=== PATIENT | male | born 1950 | race Hispanic/Latino ===

== ENCOUNTER 2018-11-23 14:04 | Observation (INO) | payer MEDICARE ==
[2018-11-21 14:30] LABS: BASOPHILS # (AUTO) 0.1 (0.0-0.1); BASOPHILS % 1.2 % (0.0-1.0); EOSINOPHILS # (AUTO) 0.4 (0.0-0.4); EOSINOPHILS % 4.2 % (0.0-6.0); HEMATOCRIT 43.8 % (38.2-49.6); HEMOGLOBIN 14.4 g/dL (14.0-18.0); LYMPHOCYTES # (AUTO) 2.9 (1.0-3.2); LYMPHOCYTES % 33.6 % (18.0-39.1); MEAN CORPUSCULAR HEMOGLOBIN 28.9 pg (28-32); MEAN CORPUSCULAR HGB CONC 32.9 g/dL (31-35); MEAN CORPUSCULAR VOLUME 87.8 fL (81-99); MONOCYTES # (AUTO) 0.7 (0.2-0.8); MONOCYTES % 8.6 % (4.4-11.3); NEUTROPHILS # (AUTO) 4.4 (2.1-6.9); NEUTROPHILS % 51.5 % (38.7-80.0); PLATELET COUNT 171 x10e3/uL (140-360); RED BLOOD COUNT 4.99 x10e6/uL (4.3-5.7); RED CELL DISTRIBUTION WIDTH 15.5 % (11.7-14.4)
[2018-11-21 14:46] LABS: ALANINE AMINOTRANSFERASE 28 IU/L (0-55); ALBUMIN 3.8 g/dL (3.5-5.0); ALBUMIN/GLOBULIN RATIO 1.1 (0.8-2.0); ALKALINE PHOSPHATASE 98 IU/L (40-150); ANION GAP 15.3 mmol/L (8-16); BLOOD UREA NITROGEN 14 mg/dL (7-26); BUN/CREATININE RATIO 13 (6-25); CALCIUM 9.7 mg/dL (8.4-10.2); CARBON DIOXIDE 25 mmol/L (22-29); CHLORIDE 98 mmol/L (98-107); CREATININE, SERUM 1.06 mg/dL (0.72-1.25); EST GLOMERULAR FILTRATION RATE > 60 ML/MIN (60-); GLUCOSE 232 mg/dL (74-118); POTASSIUM 4.3 mmol/L (3.5-5.1); SODIUM 134 mmol/L (136-145)
[2018-11-23] VITALS (15 sets, daily range): BP systolic 103–195; BP diastolic 67–100
[~2018-11-23] VITALS: Ht 153.7 cm; Wt 100.3 kg
[~2018-11-23 14:04] MED LIST: GLIMEPIRIDE2 MG PO; INSULIN GLARGINE SC; LISINOPRIL10 MG PO; LIXISENATIDE SC; METFORMIN HCL500 MG PO
[2018-11-23] MEDS ORDERED: DIPHENHYDRAMINE HCL 25 MG CAP ONE (14:19)
[2018-11-23] MEDS ORDERED: ALPRAZOLAM 0.5 MG TAB ONE (14:19)
[2018-11-23] MEDS ORDERED: SODIUM CHLORIDE 0.9% 1000ML 1,000 ML ONE (14:19)
--- NOTE | 2018-11-23 14:20 | NUR ---
pt in ACU 7, prepped for procedure. Alert oriented and appropriate, PERRLA, respirations even and unlabored to room air. Pulses x4 extremities equal and palpable. Cap fill brisk < 3 sec. 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 IV 22g x 3 attempt to left AC area started and presents healthy w/o s/s of infiltration or complaint. NS 0.9% started at 100ml/hr per dial flow. Abdomen soft and supple. pt offered toileting, denies need to urinate or defecate. Personal affects with patient. Family called for to come to room and not available. Pt understanding of POC. Pre-Op Meds benadryl and xanax given. bed low and locked, side rails up x2 and call light at side. -cgf
[2018-11-23] MEDS ORDERED: MIDAZOLAM HCL 2 MG/2 ML VIAL ONE (14:52)
[2018-11-23] MEDS ORDERED: LIDOCAINE HCL 2% LOCAL 20 ML VIAL ONE (14:52)
[2018-11-23] MEDS ORDERED: VERAPAMIL HCL 2.5 MG/ML 2 ML VIAL ONE (14:52)
[2018-11-23] MEDS ORDERED: FENTANYL CITRATE/PF 100MCG/2 ML INJ ONE (14:52)
[2018-11-23] MEDS ORDERED: HEPARIN SOD (PORCINE) 1000 UNIT/ML 30ML ONE (14:52)
[2018-11-23] MEDS ORDERED: NITROGLYCERIN/D5W 200 MCG/ML 250 ML ONE (14:53)
[2018-11-23] MEDS ORDERED: HEPARIN SOD/SOD CHLORIDE 2,000 ML ONE (14:53)
[2018-11-23] MEDS ORDERED: PRASUGREL 10 MG TAB ONE (16:21)
[2018-11-23] MEDS ORDERED: BIVALRIUDIN 250 MG/VIAL VIAL IV ONE (16:21)
[2018-11-23] MEDS ORDERED: SODIUM CHLORIDE 0.9% 50ML 50 ML ONE (16:21)
[2018-11-23] MEDS ORDERED: ASPIRIN 325 MG TAB ONE (16:21)
--- NOTE | 2018-11-23 17:25 | NUR ---
1725 bedside report received from Chelita Hankins RN. Alert oriented and appropriate, PERRLA, respirations even and unlabored to room air. Pulses x4 extremities equal and strong. Pedal pulses PT/DP x4 . Cap fill brisk < 3 sec. Skin warm and dry integrity appears IV 20g to left ac at 75cchr,presents healthy w/o s/s of infiltration or complaint. Abdomen soft and supple. pt offered toileting, denies need to urinate or defecate. No personal affects with patient. Family at bedside. Pt and family verbalizes understanding of POC. Angio max completed at 1724 ok to remove air at 1900pm, Rt Tr band w/o hematoma or s/s infiltration. Tolerated po intake. Currently w/o complaint of pain or need. Bed disposition 103 post Tr band removal. ds/margie
--- NOTE | 2018-11-23 18:30 | NUR ---
1830 reposition for comfort sc rt arm tenderness 5/10 and rt shoulder. HOB lower Medicated Morphine sulfate 4mg ivp slowly. 1844 pain relieved pt resting quietly No gross issues pain ,pallor, pressure or dysrhythmia. ds/rn
[2018-11-23] MEDS ORDERED: MORPHINE SULFATE INJ 4 MG/ML INJ 1ML ONE (18:41)
--- NOTE | 2018-11-23 19:00 | NUR ---
1900 Addendum: 11/23/18 at 1918 by Alexia Angeles RN 1900ADIAL Compression removal: Initial Cuff volume 13 cc -2cc Removed No hematoma/bleeding noted with normal neurovascular function. -2CC Removed No hematoma/ bleeding noted with normal neurovascular function. -2cc Removed No hematoma/bleeding noted with normal neurovascular function. n. Air removal completed. Stasis achieved sterile 2x2,Tegaderm, Coban dressing No hematoma, bleeding noted with normal neurovascular function. Wrist splint in place. Pt instructed on POC. Ds/Rn
--- NOTE | 2018-11-23 19:45 | NUR ---
1944 Report phoned to Jaquelin Hankins Rt tr band off Site w/o s/s hematoma wrist splint. NO gross issues pain, pallor ,pressure,ok fo rdc in am no down time Pt medicated for back discomfort and releaved Transferred to floor care per Rush HANKINS. NO complaints CP or SOB.Has tele in place and remain in sinus bradycardia. ds/rn
[2018-11-23] MEDS ORDERED: ACETAMINOPHEN 325 MG TAB PO PRN (20:30)
[2018-11-23] MEDS ORDERED: HYDROCODONE/APAP 5MG-325MG TAB PO PRN (20:30)
[2018-11-23] MEDS ORDERED: MORPHINE SULFATE INJ 4 MG/ML INJ 1ML IV PRN (20:30)
[2018-11-23] MEDS ORDERED: SODIUM CHLORIDE 0.9% 1000ML 1,000 ML IV SCH (20:30)
--- NOTE | 2018-11-23 20:30 | NUR ---
Report received from SUJATHA Malin. Patient admitted in unit @195 from electronic lab technician with alert/orientedx3. Denied pain and no SOB. Respiration even and unlabored, Spo2 maintained 98% with RA. Head to assessment completed. No skin breakdown noted, Had surgical dressing on right hand intact and dry. Family at the bedside. Bed in lower position,locked. Patient instructed call for help as needed,patient verbalized and understand. Call gutierres within reach. Will continue to monitor.
[2018-11-24 00:35] VITALS: BP 113/67
[2018-11-24 01:38] VITALS: BP 113/67
[2018-11-24 04:00] VITALS: BP 143/73
[2018-11-24 06:28] LABS: BASOPHILS # (AUTO) 0.1 (0.0-0.1); BASOPHILS % 1.2 % (0.0-1.0); EOSINOPHILS # (AUTO) 0.4 (0.0-0.4); EOSINOPHILS % 4.9 % (0.0-6.0); HEMATOCRIT 44.4 % (38.2-49.6); HEMOGLOBIN 14.2 g/dL (14.0-18.0); LYMPHOCYTES # (AUTO) 2.9 (1.0-3.2); LYMPHOCYTES % 33.5 % (18.0-39.1); MEAN CORPUSCULAR HEMOGLOBIN 28.5 pg (28-32); MEAN CORPUSCULAR VOLUME 89.2 fL (81-99); MONOCYTES # (AUTO) 0.7 (0.2-0.8); MONOCYTES % 8.3 % (4.4-11.3); NEUTROPHILS # (AUTO) 4.5 (2.1-6.9); NEUTROPHILS % 51.2 % (38.7-80.0); PLATELET COUNT 176 x10e3/uL (140-360); RED BLOOD COUNT 4.98 x10e6/uL (4.3-5.7); RED CELL DISTRIBUTION WIDTH 15.6 % (11.7-14.4)
[2018-11-24 06:44] LABS: BLOOD UREA NITROGEN 16 mg/dL (7-26); BUN/CREATININE RATIO 20 (6-25); CALCIUM 9.3 mg/dL (8.4-10.2); CARBON DIOXIDE 25 mmol/L (22-29); CHLORIDE 101 mmol/L (98-107); CHOL/HDL RATIO 6.6 (3.9-4.7); CHOLESTEROL 184 MD/DL (0-199); CREATININE, SERUM 0.81 mg/dL (0.72-1.25); EST GLOMERULAR FILTRATION RATE > 60 ML/MIN (60-); GLUCOSE 131 mg/dL (74-118); HDL CHOLESTEROL 28 MG/DL (40-60); SODIUM 135 mmol/L (136-145); TRIGLYCERIDES 454 MG/DL (0-149)
--- NOTE | 2018-11-24 07:00 | NUR ---
Report given to oncoming nurse,walking round done.
--- NOTE | 2018-11-24 07:11 | NUR ---
Received patient lying in bed with HOB elevated. Awake and alert. No signs and symptoms of distress noted. Call light within reach.
[2018-11-24 07:52] VITALS: BP 165/72
[2018-11-24 08:10] VITALS: BP 165/72
--- NOTE | 2018-11-24 08:40 | NUR ---
Call placed to Dr. Cleveland regarding discharge. Awaiting call back
[2018-11-24] MEDS ORDERED: ASPIRIN 325 MG TAB PO SCH (09:00)
[2018-11-24] MEDS ORDERED: CLOPIDOGREL BISULFATE 75 MG TAB PO SCH (09:00)
--- NOTE | 2018-11-24 09:00 | NUR ---
Radial site clean and dry. Splint in place. no s/s of distress noted. Radial pulse palpated.
--- NOTE | 2018-11-24 09:45 | NUR ---
DANIS Duval for Dr. Cleveland came in and assessed patient's cath site. Removed the splint and the coban wrap. Tegaderm dressing to right wrist clean and dry.
[2018-11-24] MEDS ORDERED: PLAVIX75 MG PO (10:41)
[2018-11-24] MEDS ORDERED: LIPITOR20 MG PO (10:41)
[2018-11-24] MEDS ORDERED: ASPIR 8181 MG PO (10:43)
--- NOTE | 2018-11-24 11:03 | NUR ---
Peripheral 20g IV removed. Catheter intact. No signs of active bleeding noted. Discharge instructions given.
--- NOTE | 2018-11-25 13:32 | Operative Report ---
DATE OF PROCEDURE: 11/23/2018 SURGEON: Seun Cleveland MD [employer]BER PROCEDURE NOTE INDICATION: Coronary artery disease, abnormal stress test. PROCEDURES PERFORMED: 1. Left heart catheterization, selective coronary angiography. 2. Percutaneous transluminal coronary angioplasty and stent placement to the proximal right coronary artery. 3. Deployment of right wrist TR band. COMPLICATIONS: None. RECOMMENDATIONS: Medical therapy. Including dual antiplatelet therapy for six months. DESCRIPTION OF PROCEDURE: Access obtained in the right radial artery. A 5-Dutch sheath was placed. Coronary angiography demonstrated mild coronary artery disease in the left main, circumflex, diagonal, left anterior descending artery is approximately 10% to 20% luminal stenosis. Right coronary artery was dominant vessel. Proximal 70% stenosis. LV end-diastolic pressure of 10. No gradient across the aortic valve on pullback. A decision was made to intervene on the right coronary artery. The patient received Angiomax, oral aspirin and Effient for anticoagulation. The right coronary artery was cannulated using an ERAD 5-Dutch guiding catheter. A short wire was advanced across the lesion for support. Primary stent 3.5 x 12 mm Resolute [place] deployed at 14 atmospheres. Excellent end result, less than 10% residual stenosis. BELLA-3 flow. No complications. Right wrist guidewire sheath removed. TR band applied. The patient was discharged home same day. MD THONY Ramirez/MODL /[id number]
== END 2018-11-24 11:01 | disposition home or self-care (01) ==
LOC: CATH LAB 14:04 → PACU V 16:33 → MED/SURG 19:57
PROVIDERS: ADMIT Internal Medicine Interventional Cardiology; ATTEND Internal Medicine Interventional Cardiology
DX: I25.110 Atherosclerotic heart disease of native coronary artery with unstable angina pectoris (principal); I10 Essential (primary) hypertension; G47.33 Obstructive sleep apnea (adult) (pediatric); M19.90 Unspecified osteoarthritis, unspecified site; E11.9 Type 2 diabetes mellitus without complications; F17.200 Nicotine dependence, unspecified, uncomplicated; E55.9 Vitamin D deficiency, unspecified; E53.8 Deficiency of other specified B group vitamins; D51.0 Vitamin B12 deficiency anemia due to intrinsic factor deficiency; E29.1 Testicular hypofunction; Z79.899 Other long term (current) drug therapy
CPT/HCPCS: 92928; 93458; C9600; 36415; 80048; 80053; 80061; 82948; 85025; C1769; C1874; C1887; G0378; J0583; J1644; J2001; J2250; J2270; J3010; J7030

== ENCOUNTER → 2020-01-23 | Outpatient (CLI) | payer MEDICARE ==
[~2020-01-23] MED LIST changes: +ASPIR 8181 MG PO; +IOPAMIDOL 370 MG/ML 200 ML INFUS..BTL INJ ONE; +LIPITOR20 MG PO; +PLAVIX75 MG PO; +SODIUM CHLORIDE 0.9% 250ML 250 ML ONE
[2020-01-23 10:42] LABS: BLOOD UREA NITROGEN 15 mg/dL (7-26); BUN/CREATININE RATIO 17 (6-25); CREATININE, SERUM 0.89 mg/dL (0.72-1.25); EST GLOMERULAR FILTRATION RATE > 60 ML/MIN (60-)
--- NOTE | 2020-01-23 15:42 | Diagnostic Imaging Report ---
CT of the abdomen and pelvis with and without contrast TECHNIQUE: CT of the abdomen and pelvis WITHOUT and WITH intravenous contrast and WITHOUT oral contrast. Dose modulation, iterative reconstruction, and/or weight-based adjustment of the mA/kV was utilized to reduce the radiation dose to as low as reasonably achievable. IV CONTRAST: 100 mL of Isovue-370 ORAL CONTRAST: None RADIATION DOSE: Total DLP: 1726 mGy*cm COMPLICATIONS: None INDICATION: ^[id number] ^1050 ^MICROSCOPIC HEMATURIA. COMPARISON: None. FINDINGS: LOWER THORAX: Multifocal areas of air trapping and groundglass attenuation are noted at the lung bases. Heart is mildly enlarged. HEPATOBILIARY: Liver is diffusely hypoattenuating. No suspicious hepatic lesion. Dependent calcified gallstone is noted. No biliary ductal dilatation. SPLEEN: No splenomegaly. PANCREAS: No focal masses or ductal dilatation. ADRENALS: No adrenal nodules. KIDNEYS/URETERS: 4 mm nonobstructing calculus is noted at the inferior pole of the right kidney. Left inferior pole parapelvic cyst is noted. Symmetric excretion of contrast is noted into nondilated ureters without intraluminal filling defect. No suspicious enhancing mass or perinephric fluid collection. PELVIC ORGANS/BLADDER: Urinary bladder is unremarkable. On delayed imaging it is filled with contrast, without definite intraluminal filling defect. Prostate is within normal limits for size. PERITONEUM/RETROPERITONEUM: No free air or fluid. LYMPH NODES: No lymphadenopathy. VESSELS: Negative for abdominal aortic aneurysm. Mild scattered calcified atherosclerotic changes are noted. GI TRACT: Limited due to lack of oral contrast. Negative for bowel obstruction. Stomach and portions of the colon are decompressed limiting evaluation. No surrounding inflammatory changes are noted. BONES AND SOFT TISSUES: Postsurgical changes from posterior spinal fusion and laminectomy at L4-5 are noted with intervertebral disc spacer at L4-5. Slight anterolisthesis of L4 and L5 is noted. No evidence of hardware malfunction or loosening. Severe degenerative changes noted at L3-4 and L5-S1 with vacuum phenomena, disc bulges and facet arthropathy. Moderate degenerative changes noted at L2-3. Mild to moderate degenerative changes are noted throughout the remainder of the upper lumbar spine and visualized mid to lower thoracic spine. Moderate degenerative change of the pubic symphysis is noted. No suspicious lytic or blastic lesion is identified. IMPRESSION: 1. Nonobstructing 4 mm calculus at the inferior pole the right kidney. Peripelvic cysts the inferior pole of the left kidney. No suspicious mass or perinephric fluid collection. Negative for hydronephrosis or intraluminal filling defect of the upper urinary tract system. Bladder is unremarkable without wall thickening or definite intraluminal filling defect. 2. Multifocal geographic areas of attenuation at the lung bases probably relates to air trapping and less likely interstitial edema or infection. 3. Cholelithiasis. 4. Hepatic steatosis. 5. Postsurgical changes from posterior spinal fusion and decompression at L4-5 as described above with advanced degenerative changes of the adjacent levels. Signed by: Sean Donnelly MD on 01/23/2020 3:38 PM
== END ==
LOC: CT 09:32
PROVIDERS: ATTEND Urology
DX: R31.29 Other microscopic hematuria (principal)
CPT/HCPCS: 36415; 74178; 82565; 84520; J7050; Q9967

== ENCOUNTER 2020-08-27 10:49 | Emergency (ER) | payer MEDICARE ==
[~2020-08-27] VITALS: Ht 153.7 cm; Wt 100.2 kg
[~2020-08-27 10:49] MED LIST changes: -IOPAMIDOL 370 MG/ML 200 ML INFUS..BTL INJ ONE; -SODIUM CHLORIDE 0.9% 250ML 250 ML ONE
[2020-08-27] MEDS ORDERED: KETOROLAC TROMETHAMINE 30 MG/ML VIAL IM STA (11:29)
[2020-08-27] MEDS ORDERED: ULTRAM50 MG PO (12:22)
[2020-08-27 12:25] VITALS: BP 125/74
== END 2020-08-27 12:30 | disposition home or self-care (01) ==
LOC: ER 11:26
DX: M77.51 Other enthesopathy of right foot and ankle (principal); I10 Essential (primary) hypertension; E78.5 Hyperlipidemia, unspecified
CPT/HCPCS: 73630; 99283; J1885

== ENCOUNTER 2024-02-06 14:40 | Inpatient (IN) | payer MEDICARE, OTHER ==
[~2024-02-06] VITALS: Ht 153.7 cm; Wt 100.2 kg
[~2024-02-06 14:40] MED LIST changes: +METHOCARBAMOL500 MG PO; +ULTRAM50 MG PO
[2024-02-06 15:30] LABS: BASOPHILS # (AUTO) 0.1 (0.0-0.1); BASOPHILS % 0.5 % (0.0-1.0); EOSINOPHILS # (AUTO) 0.3 (0.0-0.4); EOSINOPHILS % 2.1 % (0.0-6.0); HEMATOCRIT 45.1 % (38.2-49.6); HEMOGLOBIN 14.5 g/dL (14.0-18.0); LYMPHOCYTES # (AUTO) 2.3 (1.0-3.2); LYMPHOCYTES % 16.5 % (18.0-39.1); MEAN CORPUSCULAR HEMOGLOBIN 29.2 pg (28-32); MEAN CORPUSCULAR HGB CONC 32.2 g/dL (31-35); MEAN CORPUSCULAR VOLUME 90.9 fL (81-99); MONOCYTES # (AUTO) 1.2 (0.2-0.8); MONOCYTES % 9.1 % (4.4-11.3); NEUTROPHILS # (AUTO) 9.8 (2.1-6.9); NEUTROPHILS % 71.4 % (38.7-80.0); PLATELET COUNT 159 x10e3/uL (140-360); RED BLOOD COUNT 4.96 x10e6/uL (4.3-5.7); RED CELL DISTRIBUTION WIDTH 14.6 % (11.7-14.4); WHITE BLOOD COUNT 13.65 x10e3/uL (4.8-10.8)
[2024-02-06 15:56] LABS: ALBUMIN 3.6 g/dL (3.5-5.0); ALBUMIN/GLOBULIN RATIO 0.9 (0.8-2.0); ANION GAP 12.2 mmol/L (8-16); BILIRUBIN,TOTAL 0.4 mg/dL (0.2-1.2); CALCIUM 9.3 mg/dL (8.4-10.2); CREATININE, SERUM 1.28 mg/dL (0.72-1.25); POTASSIUM 4.2 mmol/L (3.5-5.1); TOTAL PROTEIN 7.6 g/dL (6.5-8.1)
[2024-02-06] MEDS: ONDANSETRON HCL INJ 2MG/ML 2ML 2 MG/ML VIAL IV STA (16:09)
[2024-02-06] MEDS: SODIUM CHLORIDE 0.9% 1000ML 1,000 ML IV STA (16:10)
[2024-02-06 16:15] LABS: PROTHROMBIN TIME 13.7 seconds (11.9-14.5)
[2024-02-06 16:16] LABS: PARTIAL THROMBOPLASTIN TIME 32.3 seconds (23.8-35.5)
[2024-02-06 16:22] LABS: MAGNESIUM 2.1 MG/DL (1.3-2.1)
[2024-02-06 16:28] LABS: TROPONIN I 0.012 ng/mL (0-0.300)
[2024-02-06 16:43] LABS: CHOL/HDL RATIO 4.3 (3.9-4.7)
[2024-02-06] MEDS ORDERED: IOPAMIDOL 370 MG/ML 100 ML INFUS..BTL INJ ONE (17:07)
[2024-02-06] MEDS ORDERED: DEXTROSE 50% SYRINGE 50 ML IV PRN (18:45)
[2024-02-06 19:07] VITALS: PULSE 76; RESP 15; TEMP 99.4
[2024-02-06] MEDS: SODIUM CHLORIDE 0.9% 1000ML 1,000 ML IV SCH (19:16)
[2024-02-06 20:37] VITALS: BP 109/77; PULSE 68; RESP 17; TEMP 98.1; O2SAT 100
[2024-02-06 21:11] VITALS: BP 109/64; PULSE 67; RESP 26; TEMP 98.7; O2SAT 96
[2024-02-06] MEDS ORDERED: FLOMAX0.4 MG PO (22:34)
[2024-02-06] MEDS ORDERED: JARDIANCE10 MG PO (22:34)
[2024-02-06] MEDS ORDERED: TRESIBA100 UNIT/1 SC (22:34)
[2024-02-06] MEDS ORDERED: OZEMPIC1 MG/0.71 SC (22:34)
[2024-02-06] MEDS: ONDANSETRON HCL INJ 2MG/ML 2ML 2 MG/ML VIAL IV PRN (22:56)
[2024-02-06] MEDS: Morphine 2mg Syringe 2 MG/ML SYR IV PRN (22:57)
[2024-02-06] MEDS: INSULIN LISPRO 100 UNIT/1 ML 3ML VIAL SQ SCH (23:56)
[2024-02-07] VITALS (8 sets, daily range): BP systolic 112–127; BP diastolic 64–81; PULSE 63–71; RESP 17–22; TEMP 97.9–99; O2SAT 95–100
[2024-02-07 00:34] LABS: TROPONIN I 0.031 ng/mL (0-0.300)
[2024-02-07 05:45] LABS: BASOPHILS # (AUTO) 0.1 (0.0-0.1); BASOPHILS % 0.5 % (0.0-1.0); EOSINOPHILS # (AUTO) 0.5 (0.0-0.4); EOSINOPHILS % 3.4 % (0.0-6.0); HEMATOCRIT 43.2 % (38.2-49.6); HEMOGLOBIN 13.4 g/dL (14.0-18.0); LYMPHOCYTES # (AUTO) 2.6 (1.0-3.2); LYMPHOCYTES % 19.1 % (18.0-39.1); MEAN CORPUSCULAR HEMOGLOBIN 28.9 pg (28-32); MEAN CORPUSCULAR VOLUME 93.1 fL (81-99); MONOCYTES # (AUTO) 1.2 (0.2-0.8); MONOCYTES % 8.8 % (4.4-11.3); NEUTROPHILS # (AUTO) 9.1 (2.1-6.9); NEUTROPHILS % 67.8 % (38.7-80.0); PLATELET COUNT 152 x10e3/uL (140-360); RED BLOOD COUNT 4.64 x10e6/uL (4.3-5.7); RED CELL DISTRIBUTION WIDTH 14.7 % (11.7-14.4); WHITE BLOOD COUNT 13.37 x10e3/uL (4.8-10.8)
[2024-02-07 06:06] LABS: ALBUMIN 3.3 g/dL (3.5-5.0); ALBUMIN/GLOBULIN RATIO 0.9 (0.8-2.0); BILIRUBIN,TOTAL 0.6 mg/dL (0.2-1.2); CALCIUM 8.9 mg/dL (8.4-10.2); CREATININE, SERUM 1.02 mg/dL (0.72-1.25); TOTAL PROTEIN 6.9 g/dL (6.5-8.1)
[2024-02-07 06:47] LABS: TROPONIN I 0.015 ng/mL (0-0.300)
[2024-02-07] MEDS: DEXTROSE 5%/0.9% SOD CHL 1,000 ML IV SCH (07:56)
[2024-02-07] MEDS: PNEUMOCOCCAL VACCINE POLYVALENT 23 MCG/0.5 ML VIAL IM ONE (08:08)
[2024-02-07] MEDS: INFLUENZA VIRUS VAC SPLIT INJ 0.5 ML SYR IM ONE (08:08)
[2024-02-07] MEDS: DEXTROSE 5%/0.9% SOD CHL 1,000 ML IV ONE (08:09)
[2024-02-07 14:06] LABS: TROPONIN I 0.011 ng/mL (0-0.300)
[2024-02-07] MEDS: Morphine 4mg INJECTION 4 MG/ML INJ IV PRN (20:28)
[2024-02-08] VITALS (7 sets, daily range): BP systolic 102–121; BP diastolic 53–74; PULSE 58–63; RESP 18–21; TEMP 97.7–98; O2SAT 97–100
[2024-02-08 06:22] LABS: BASOPHILS # (AUTO) 0.1 (0.0-0.1); BASOPHILS % 0.9 % (0.0-1.0); EOSINOPHILS # (AUTO) 0.5 (0.0-0.4); EOSINOPHILS % 5.5 % (0.0-6.0); HEMATOCRIT 43.4 % (38.2-49.6); HEMOGLOBIN 13.5 g/dL (14.0-18.0); LYMPHOCYTES # (AUTO) 2.1 (1.0-3.2); LYMPHOCYTES % 23.6 % (18.0-39.1); MEAN CORPUSCULAR HEMOGLOBIN 29.2 pg (28-32); MEAN CORPUSCULAR HGB CONC 31.1 g/dL (31-35); MEAN CORPUSCULAR VOLUME 93.7 fL (81-99); MONOCYTES # (AUTO) 0.7 (0.2-0.8); MONOCYTES % 7.4 % (4.4-11.3); NEUTROPHILS # (AUTO) 5.4 (2.1-6.9); PLATELET COUNT 158 x10e3/uL (140-360); RED BLOOD COUNT 4.63 x10e6/uL (4.3-5.7); RED CELL DISTRIBUTION WIDTH 14.5 % (11.7-14.4); WHITE BLOOD COUNT 8.77 x10e3/uL (4.8-10.8)
[2024-02-08 06:50] LABS: ALBUMIN 3.3 g/dL (3.5-5.0); ALBUMIN/GLOBULIN RATIO 0.8 (0.8-2.0); ANION GAP 13.1 mmol/L (8-16); BILIRUBIN,TOTAL 0.6 mg/dL (0.2-1.2); CALCIUM 9.1 mg/dL (8.4-10.2); CREATININE, SERUM 0.96 mg/dL (0.72-1.25); POTASSIUM 4.1 mmol/L (3.5-5.1); TOTAL PROTEIN 7.4 g/dL (6.5-8.1)
[2024-02-08] MEDS: ENOXAPARIN SOD INJ 40 MG/0.4 ML SYR SC ONE (10:13)
[2024-02-09] VITALS (10 sets, daily range): BP systolic 118–148; BP diastolic 70–81; PULSE 54–93; RESP 18–21; TEMP 97.5–98.1; O2SAT 90–99
[2024-02-09 05:25] LABS: BASOPHILS # (AUTO) 0.1 (0.0-0.1); BASOPHILS % 0.8 % (0.0-1.0); EOSINOPHILS # (AUTO) 0.5 (0.0-0.4); EOSINOPHILS % 6.1 % (0.0-6.0); HEMATOCRIT 41.9 % (38.2-49.6); HEMOGLOBIN 12.9 g/dL (14.0-18.0); LYMPHOCYTES # (AUTO) 2.1 (1.0-3.2); LYMPHOCYTES % 24.1 % (18.0-39.1); MEAN CORPUSCULAR HEMOGLOBIN 28.9 pg (28-32); MEAN CORPUSCULAR HGB CONC 30.8 g/dL (31-35); MEAN CORPUSCULAR VOLUME 93.9 fL (81-99); MONOCYTES # (AUTO) 0.7 (0.2-0.8); MONOCYTES % 8.3 % (4.4-11.3); NEUTROPHILS # (AUTO) 5.1 (2.1-6.9); NEUTROPHILS % 60.2 % (38.7-80.0); PLATELET COUNT 165 x10e3/uL (140-360); RED BLOOD COUNT 4.46 x10e6/uL (4.3-5.7); RED CELL DISTRIBUTION WIDTH 14.4 % (11.7-14.4); WHITE BLOOD COUNT 8.52 x10e3/uL (4.8-10.8)
[2024-02-09 05:55] LABS: ALBUMIN 3.2 g/dL (3.5-5.0); ALBUMIN/GLOBULIN RATIO 0.9 (0.8-2.0); BILIRUBIN,TOTAL 0.4 mg/dL (0.2-1.2); CALCIUM 8.9 mg/dL (8.4-10.2); CREATININE, SERUM 0.83 mg/dL (0.72-1.25); TOTAL PROTEIN 6.7 g/dL (6.5-8.1)
[2024-02-09] MEDS ORDERED: ACETAMINOPHEN 1000 MG/100 ML 100 ML IV ONE (06:41)
[2024-02-09] MEDS ORDERED: BUPIVACAINE HCL 0.5% INJ 30 ML VIAL INJ ONE (06:58)
[2024-02-09] MEDS ORDERED: ACETAMINOPHEN 325 MG/10 ML UDC PO PRN (08:00)
[2024-02-09] MEDS ORDERED: ONDANSETRON HCL INJ 2MG/ML 2ML 2 MG/ML VIAL IV PRN (08:00)
[2024-02-09] MEDS: FENTANYL CITRATE/PF 100MCG/2 ML INJ ONE (08:07)
[2024-02-09] MEDS: SODIUM CHLORIDE 0.9% 1000ML 1,000 ML IV SCH (09:39)
[2024-02-09] MEDS ORDERED: GLYCOPYRROLATE INJ 0.2 MG/ML VIAL ONE (12:02)
[2024-02-09] MEDS ORDERED: METOCLOPRAMIDE HCL 10 MG/2ML VIAL ONE (12:02)
[2024-02-09] MEDS ORDERED: KETOROLAC TROMETHAMINE 30 MG/ML VIAL ONE (12:02)
[2024-02-09] MEDS ORDERED: PROPOFOL IV EMULSION 10 MG/ML 20 ML VIAL ONE (12:02)
[2024-02-09] MEDS ORDERED: ROCURONIUM BROMIDE 10 MG/ML 5ML VIAL IV ONE (12:02)
[2024-02-09] MEDS ORDERED: NEOSTIGMINE 1 MG/ML 10ML VIAL ONE (12:02)
[2024-02-09] MEDS ORDERED: SEVOFLURANE INHAL SOLN 250 ML PEN BTL ONE (12:02)
[2024-02-09] MEDS ORDERED: ONDANSETRON HCL INJ 2MG/ML 2ML 2 MG/ML VIAL ONE (12:02)
[2024-02-09] MEDS ORDERED: FENTANYL CITRATE/PF 100MCG/2 ML INJ ONE (19:32)
[2024-02-09] MEDS: HYDROCODONE/APAP 5MG-325MG TAB PO PRN (23:16)
[2024-02-10 02:56] VITALS: PULSE 88; RESP 20; O2SAT 94
[2024-02-10 03:08] VITALS: BP 150/74; PULSE 62; RESP 18; TEMP 98.1; O2SAT 96
[2024-02-10] MEDS: INSULIN LISPRO 100 UNIT/1 ML 3ML VIAL SQ SCH (07:30)
[2024-02-10 09:20] VITALS: BP 152/80; PULSE 60; RESP 17; TEMP 98; O2SAT 99
[2024-02-10] MEDS ORDERED: TYLENOL325 MG PO (09:24)
[2024-02-10] MEDS ORDERED: PANTOPRAZOLE SO40 MG PO (09:24)
[2024-02-10] MEDS ORDERED: SENOKOT8.6 MG PO (09:24)
[2024-02-10] MEDS ORDERED: CEPHALEXIN500 MG PO (09:24)
[2024-02-10] MEDS ORDERED: ONDANSETRON ODT4 MG PO (09:24)
[2024-02-10 10:12] VITALS: BP 152/80; PULSE 60; RESP 17; TEMP 98; O2SAT 99
[2024-02-10 11:30] VITALS: BP 156/87; PULSE 65; RESP 17; TEMP 98; O2SAT 97
== END 2024-02-10 11:40 | disposition home or self-care (01) | DRG 418 ==
LOC: ER 15:38 → ERHOLD 18:50 → MED/SURG 20:40
PROVIDERS: ADMIT Internal Medicine; ATTEND Internal Medicine
PROC: 0FT44ZZ Resection of Gallbladder, Percutaneous Endoscopic Approach (ICD-10-PCS; principal; 2024-02-09 07:04)
DX: K85.10 Biliary acute pancreatitis without necrosis or infection (principal); E87.1 Hypo-osmolality and hyponatremia; K80.20 Calculus of gallbladder without cholecystitis without obstruction; I10 Essential (primary) hypertension; E11.9 Type 2 diabetes mellitus without complications; N20.0 Calculus of kidney; E78.5 Hyperlipidemia, unspecified; K76.0 Fatty (change of) liver, not elsewhere classified; M54.9 Dorsalgia, unspecified; Z79.02 Long term (current) use of antithrombotics/antiplatelets; Z79.4 Long term (current) use of insulin; Z79.82 Long term (current) use of aspirin; Z79.84 Long term (current) use of oral hypoglycemic drugs; Z90.49 Acquired absence of other specified parts of digestive tract
CPT/HCPCS: 36415; 74177; 74181; 76705; 80053; 80061; 82550; 82948; 83036; 83690; 83735; 84484; 85025; 85610; 85730; 88304; 93005; 94799; 99252; 99284; J0696; J1650; J1885; J2270; J2405; J2470; J2543; J2710; J2765; J7030; J7042; Q9967

== ENCOUNTER 2024-05-25 09:18 | Observation (INO) | payer MEDICARE, OTHER ==
[~2024-05-25] VITALS: Ht 165.1 cm; Wt 86.2 kg
[~2024-05-25 09:18] MED LIST changes: +CEPHALEXIN500 MG PO; +FLOMAX0.4 MG PO; +JARDIANCE10 MG PO; +ONDANSETRON ODT4 MG PO; +OZEMPIC1 MG/0.71 SC; +PANTOPRAZOLE SO40 MG PO; +SENOKOT8.6 MG PO; +TRESIBA100 UNIT/1 SC; +TYLENOL325 MG PO
[2024-05-25 09:49] LABS: BASOPHILS # (AUTO) 0.1 (0.0-0.1); BASOPHILS % 1.2 % (0.0-1.0); EOSINOPHILS # (AUTO) 0.4 (0.0-0.4); EOSINOPHILS % 4.6 % (0.0-6.0); HEMATOCRIT 43.4 % (38.2-49.6); HEMOGLOBIN 14.2 g/dL (14.0-18.0); LYMPHOCYTES # (AUTO) 2.2 (1.0-3.2); LYMPHOCYTES % 29.5 % (18.0-39.1); MEAN CORPUSCULAR HEMOGLOBIN 29.6 pg (28-32); MEAN CORPUSCULAR HGB CONC 32.7 g/dL (31-35); MEAN CORPUSCULAR VOLUME 90.4 fL (81-99); MONOCYTES # (AUTO) 0.5 (0.2-0.8); MONOCYTES % 7.2 % (4.4-11.3); NEUTROPHILS # (AUTO) 4.3 (2.1-6.9); NEUTROPHILS % 56.8 % (38.7-80.0); PLATELET COUNT 165 x10e3/uL (140-360); RED CELL DISTRIBUTION WIDTH 15.3 % (11.7-14.4); WHITE BLOOD COUNT 7.55 x10e3/uL (4.8-10.8)
[2024-05-25] MEDS: SODIUM CHLORIDE 0.9% 1000ML 1,000 ML IV STA (09:49)
[2024-05-25] MEDS: TETANUS/DIPHTHERIA TOX ADULT 0.5 ML SYR IM ONE (09:50)
[2024-05-25 10:27] LABS: INR 0.86; PROTHROMBIN TIME 12.3 seconds (11.9-14.5)
[2024-05-25 10:28] LABS: PARTIAL THROMBOPLASTIN TIME 31.6 seconds (23.8-35.5)
[2024-05-25 10:34] LABS: ALBUMIN 4.1 g/dL (3.5-5.0); ALBUMIN/GLOBULIN RATIO 1.2 (0.8-2.0); ANION GAP 15.3 mmol/L (8-16); BILIRUBIN,TOTAL 0.3 mg/dL (0.2-1.2); CREATININE, SERUM 1.07 mg/dL (0.72-1.25); POTASSIUM 4.3 mmol/L (3.5-5.1); TOTAL PROTEIN 7.6 g/dL (6.5-8.1)
[2024-05-25] MEDS: BUPIVACAINE HCL 0.25% 10ML MPF VIAL INJ ONE (10:41)
[2024-05-25] MEDS: LIDOCAINE 1% 10 ML MULTIDOSE VIAL IJ ONE (10:41)
[2024-05-25] MEDS: SODIUM CHLORIDE 0.9% 1000ML 1,000 ML IV SCH (11:35)
[2024-05-25 11:46] VITALS: PULSE 56; RESP 16; TEMP 97.7
[2024-05-25] MEDS ORDERED: LIDOCAINE HCL 2% LOCAL INJ 5 ML SDV VIAL INJ ONE (11:53)
[2024-05-25] MEDS ORDERED: ROCURONIUM BROMIDE 1 ML IV ONE (11:53)
[2024-05-25] MEDS ORDERED: SUCCINYLCHOLINE CHLORIDE 20 MG/ML 10ML VIAL ONE (11:53)
[2024-05-25] MEDS ORDERED: FENTANYL CITRATE/PF 100MCG/2 ML INJ ONE (11:53)
[2024-05-25] MEDS ORDERED: PROPOFOL IV EMULSION 10 MG/ML 20 ML VIAL ONE (11:57)
[2024-05-25] MEDS ORDERED: DOCUSATE SODIUM 100 MG CAP PO PRN (12:00)
[2024-05-25] MEDS ORDERED: ALBUTEROL/IPRATROPIUM 3 ML NEB NEB PRN (12:00)
[2024-05-25] MEDS ORDERED: ONDANSETRON HCL INJ 2MG/ML 2ML 2 MG/ML VIAL IV PRN (12:00)
[2024-05-25] MEDS ORDERED: ACETAMINOPHEN 325 MG TAB PO PRN (12:00)
[2024-05-25] MEDS ORDERED: DEXTROSE 50% SYRINGE 50 ML IV PRN (12:00)
[2024-05-25] MEDS ORDERED: MELATONIN 3 MG TAB PO PRN (12:00)
[2024-05-25] MEDS ORDERED: METOPROLOL TARTRATE INJ 1 MG/ML VIAL IV PRN (12:00)
[2024-05-25 12:17] LABS: CHOL/HDL RATIO 4.1 (3.9-4.7)
[2024-05-25] MEDS ORDERED: EPHEDRINE SULFATE INJ 50 MG/ML VIAL ONE (13:26)
[2024-05-25] MEDS ORDERED: DEXAMETHASONE SOD PHOS INJ 4 MG/ML SDV ONE (13:26)
[2024-05-25] MEDS ORDERED: SEVOFLURANE INHAL SOLN 250 ML PEN BTL ONE (13:26)
[2024-05-25] MEDS ORDERED: METOCLOPRAMIDE HCL 10 MG/2ML VIAL ONE (13:26)
[2024-05-25] MEDS ORDERED: ONDANSETRON HCL INJ 2MG/ML 2ML 2 MG/ML VIAL ONE (13:26)
[2024-05-25] MEDS ORDERED: KETOROLAC TROMETHAMINE 30 MG/ML VIAL ONE (13:26)
[2024-05-25] MEDS ORDERED: Morphine 10mg syringe 10 MG/ML INJ ONE (14:38)
[2024-05-25] MEDS ORDERED: SUGAMMADEX SODIUM 200 MG/2 ML VIAL IV ONE (14:53)
[2024-05-25 16:11] VITALS: BP 124/67; PULSE 61; RESP 18; TEMP 97.5; O2SAT 98
[2024-05-25] MEDS: INSULIN REGULAR, HUMAN 100 UNIT/1 ML SQ SCH (16:30)
[2024-05-25] MEDS ORDERED: LISINOPRIL-HCT1 EAC2 PO (16:33)
[2024-05-25] MEDS: HYDROCODONE/APAP 7.5MG-325MG 1 EA TAB PO PRN (18:10)
[2024-05-25] MEDS: TAMSULOSIN HCL 0.4 MG CAP PO SCH (18:20)
[2024-05-25 18:32] VITALS: BP 124/67; PULSE 61; RESP 18; TEMP 97.5; O2SAT 98
[2024-05-26] VITALS (7 sets, daily range): BP systolic 116–129; BP diastolic 63–72; PULSE 59–75; RESP 16–20; TEMP 97.8–98.6; O2SAT 96–100
[2024-05-26] MEDS: TRAMADOL HCL 50 MG TAB PO PRN (03:08)
[2024-05-26 06:10] LABS: BASOPHILS % 0.2 % (0.0-1.0); EOSINOPHILS % 0.1 % (0.0-6.0); HEMATOCRIT 39.5 % (38.2-49.6); HEMOGLOBIN 12.9 g/dL (14.0-18.0); LYMPHOCYTES # (AUTO) 1.6 (1.0-3.2); LYMPHOCYTES % 10.6 % (18.0-39.1); MEAN CORPUSCULAR HEMOGLOBIN 28.9 pg (28-32); MEAN CORPUSCULAR HGB CONC 32.7 g/dL (31-35); MEAN CORPUSCULAR VOLUME 88.4 fL (81-99); MONOCYTES # (AUTO) 0.8 (0.2-0.8); MONOCYTES % 5.5 % (4.4-11.3); NEUTROPHILS # (AUTO) 12.5 (2.1-6.9); NEUTROPHILS % 83.3 % (38.7-80.0); PLATELET COUNT 165 x10e3/uL (140-360); RED BLOOD COUNT 4.47 x10e6/uL (4.3-5.7); RED CELL DISTRIBUTION WIDTH 15.6 % (11.7-14.4); WHITE BLOOD COUNT 15.05 x10e3/uL (4.8-10.8)
[2024-05-26 06:40] LABS: ANION GAP 15.7 mmol/L (8-16); CALCIUM 8.7 mg/dL (8.4-10.2); CREATININE, SERUM 1.03 mg/dL (0.72-1.25); POTASSIUM 4.7 mmol/L (3.5-5.1)
[2024-05-26] MEDS ORDERED: INSULIN DEGLUDEC 25 UNIT SC SCH (09:00)
[2024-05-26] MEDS: SENNOSIDES 8.6 MG TAB PO SCH (09:10)
[2024-05-26] MEDS: LISINOPRIL 10 MG TAB PO SCH (09:10)
[2024-05-26] MEDS: PANTOPRAZOLE SOD 40 MG TABEC PO SCH (09:10)
[2024-05-26] MEDS ORDERED: TYLENOL325 MG PO (10:05)
[2024-05-26] MEDS ORDERED: ULTRAM 50MG50 MG PO (10:05)
[2024-05-26] MEDS ORDERED: AUGMENTIN 500-1 EACH PO (10:05)
[2024-05-26] MEDS ORDERED: AMOXICILLIN/CLAVULANATE K 875 MG TAB PO ONE (11:00)
[2024-05-26] MEDS ORDERED: HYDROCODON-ACE1 EA11 PO (12:14)
== END 2024-05-26 12:23 | disposition home or self-care (01) ==
LOC: ER 09:36 → ERHOLD 11:20 → MED/SURG3 16:25
PROVIDERS: ADMIT Internal Medicine; ATTEND Internal Medicine
DX: S62.522B Displaced fracture of distal phalanx of left thumb, initial encounter for open fracture (principal); S62.512B Displaced fracture of proximal phalanx of left thumb, initial encounter for open fracture; S56.022A Laceration of flexor muscle, fascia and tendon of left thumb at forearm level, initial encounter; S64.02XA Injury of ulnar nerve at wrist and hand level of left arm, initial encounter; S64.22XA Injury of radial nerve at wrist and hand level of left arm, initial encounter; W27.0XXA Contact with workbench tool, initial encounter; I10 Essential (primary) hypertension; E78.5 Hyperlipidemia, unspecified; G89.29 Other chronic pain; M54.9 Dorsalgia, unspecified; N40.0 Benign prostatic hyperplasia without lower urinary tract symptoms; E11.9 Type 2 diabetes mellitus without complications; Z79.84 Long term (current) use of oral hypoglycemic drugs; Z79.4 Long term (current) use of insulin; Z23 Encounter for immunization; E87.1 Hypo-osmolality and hyponatremia; E66.9 Obesity, unspecified; Z68.36 Body mass index [BMI] 36.0-36.9, adult
CPT/HCPCS: 11012; 26356; 26746; 36415 ×2; 64836; 64910; 71045; 73140; 80048; 80053; 80061; 82948 ×2; 83036; 85025 ×2; 85610; 85730; 90471; 90714; 94799; 99284; C1713; C1763; G0378 ×2; J0330; J0690; J1100; J1885; J2003; J2270; J2405; J2704; J2765; J3010; J7030; J7050; S0164

== ENCOUNTER → 2024-09-23 | Outpatient (REF) | payer MEDICARE ==
[~2024-09-23] MED LIST changes: +AUGMENTIN 500-1 EACH PO; +HYDROCODON-ACE1 EA11 PO; +LISINOPRIL-HCT1 EAC2 PO; +ULTRAM 50MG50 MG PO
== END ==
LOC: RAD 16:05
PROVIDERS: ATTEND Orthopaedic Surgery Hand Surgery
DX: Z96.698 Presence of other orthopedic joint implants (principal); Z87.81 Personal history of (healed) traumatic fracture

== ENCOUNTER → 2025-01-01 | Outpatient (REF) | payer MEDICARE | LOC: RAD 12:13 | PROVIDERS: ATTEND Orthopaedic Surgery | DX: Z87.81 Personal history of (healed) traumatic fracture (principal); Z96.698 Presence of other orthopedic joint implants ==